=== PATIENT | female | born 1980 | race Caucasian/White ===

== ENCOUNTER 2017-08-07 09:33 | Day surgery (SDC) | payer MEDICAID ==
[~2017-08-07] VITALS: Ht 166.4 cm; Wt 72.8 kg
[~2017-08-07 09:33] MED LIST: ASPIRIN EC325 M1 PO; CELEXA20 M2 PO; FLEXERAL PO; IBUPROFEN200 M2 PO; MULTIVITAMINS1 EAC6 PO; NEURONTIN300 M1 PO; SYNTHROID112 MC1 PO; VENTOLIN HFA18 G2 INH; VITAMIN D1000 UNI2 PO
[2017-08-07 10:24] LABS: BASO % 0.8 % (0-2); BASO ABSOLUTE COUNT 0.1 tho/cmm (0.0-0.2); EOS % 3.3 % (0-7); EOSINOPHIL ABSOLUTE COUNT 0.3 tho/cmm (0.0-0.7); HCT-HEMATOCRIT 43.4 % (34.0-49.0); HGB-HEMOGLOBIN 14.9 gm/dl (12.0-15.5); IMMATURE GRANULOCYTES ABSOLUTE 0.04 tho/cmm (0-0.03); IMMATURE GRANULOCYTES PERCENT 0.5 % (0-0.3); LYMPH % 21.7 % (20-45); LYMPH ABSOLUTE COUNT 1.8 tho/cmm (0.8-4.5); MCH (MEAN CORPUSCULAR HGB) 32.4 pg (28.0-32.0); MCHC MEAN CORPUSCULAR HGB CONC 34.3 % (32.0-36.0); MCV (MEAN CELL VOLUME) 94.3 fl (82.0-96.0); MEAN PLATELET VOLUME 9.6 cmc (9.4-12.4); MONO % 7.8 % (0-12); MONOCYTE ABSOLUTE COUNT 0.7 tho/cmm (0.0-1.2); NEUTROPHIL ABSOLUTE COUNT 5.5 tho/cmm (1.6-8.0); NEUTROPHIL-AUTOMATED 5.5 tho/cmm (1.6-8.0); NEUTROPHILS % 65.9 % (40-80); PLATELET COUNT 451 tho/cmm (150-450); RED CELL DISTRIBUTION WIDTH 12.2 % (12.4-16.4); WHITE BLOOD COUNT 8.4 tho/cmm (4.0-10.0)
[2017-08-07 10:26] LABS: INR 1.1 INR (0.9-1.1); PROTHROMBIN TIME 12.8 SECONDS (9.0-13.6)
[2017-08-07 14:54] LABS: CSF GLUCOSE 52 mg/dl (40-75)
[2017-08-07 15:38] LABS: CSF APPEARANCE CLEAR (CLEAR); CSF COLOR COLORLESS (COLORLESS); CSF RBC CT 1 cmm (0); CSF TUBE NUMBER CSF TUBE 3
[2017-08-07 15:39] LABS: CSF WBC CT <1 cmm (0-10)
== END 2017-08-07 14:00 ==
LOC: SHSB 09:33 → RADSP 09:33 → SHSB 09:37 → RADSP 11:00
PROVIDERS: Psychiatry & Neurology Neurology; Radiology Diagnostic Radiology
PROC: 009U3ZX Drainage of Spinal Canal, Percutaneous Approach, Diagnostic (ICD-10-PCS; principal; 2017-08-07)
PROC: B01BZZZ Fluoroscopy of Spinal Cord (ICD-10-PCS; 2017-08-07)
DX: R42 Dizziness and giddiness (principal); G43.909 Migraine, unspecified, not intractable, without status migrainosus; Z79.82 Long term (current) use of aspirin; Z79.899 Other long term (current) drug therapy; Z88.8 Allergy status to other drugs, medicaments and biological substances
CPT/HCPCS: J7030